=== PATIENT | female | born 1950 ===

== ENCOUNTER 2017-10-21 07:15 | Inpatient (IN) | payer OTHER ==
[~2017-10-21] VITALS: Ht 162.6 cm; Wt 77.1 kg
[2017-10-21] MEDS ORDERED: ANTIVERT PO (10:56)
[2017-10-21] MEDS ORDERED: METFORMIN HCL850 MG PO (10:56)
[2017-10-21] MEDS ORDERED: ZOCOR40 MG PO (10:56)
[2017-10-21] MEDS ORDERED: GABAPENTIN100 MG PO (10:57)
[2017-10-21] MEDS ORDERED: BENTYL10 MG/1 ML IM (10:57)
[2017-10-21] MEDS ORDERED: ZANTAC300 MG PO (10:58)
[2017-10-21] MEDS ORDERED: INDAPAMIDE2.5 MG PO (10:58)
[2017-10-21] MEDS ORDERED: GABAPENTIN600 MG PO (10:58)
[2017-10-21] MEDS ORDERED: SINGULAIR10 MG PO (10:59)
[2017-10-21] MEDS ORDERED: ALBUTEROL0.63 MG/3 IH (10:59)
[2017-10-21] MEDS ORDERED: VENTOLIN HFA18 GM (11:00)
[2017-10-21] MEDS ORDERED: AMLODIPINE-BEN1 EAC4 (11:01)
[2017-11-01] MEDS ORDERED: OXYC1TAB9 PO (07:26)
[2017-11-01] MEDS ORDERED: HYOSCYAMINE0.125 M1 SL (07:26)
== END 2017-11-01 10:14 | disposition home or self-care (01) | DRG 330 ==
LOC: O/R 10-28 06:49 → SURH 10-28 06:49 → SURG 10-28 07:15 → SURH 10-28 14:47 → SURG 10-28 17:45 → SURH 10-29 11:44
PROVIDERS: Surgery
PROC: 07TC4ZZ Resection of Pelvis Lymphatic, Percutaneous Endoscopic Approach (ICD-10-PCS; 2017-10-28)
PROC: 3E0F7GC Introduction of Other Therapeutic Substance into Respiratory Tract, Via Natural or Artificial Opening (ICD-10-PCS; 2017-10-28)
PROC: 0DTF4ZZ Resection of Right Large Intestine, Percutaneous Endoscopic Approach (ICD-10-PCS; principal; 2017-10-28 17:45)
DX: C18.0 Malignant neoplasm of cecum (principal); C77.5 Secondary and unspecified malignant neoplasm of intrapelvic lymph nodes; I11.9 Hypertensive heart disease without heart failure; E11.9 Type 2 diabetes mellitus without complications; J45.20 Mild intermittent asthma, uncomplicated